=== PATIENT | female | born 1985 | race Caucasian/White ===

== ENCOUNTER 2016-12-20 18:30 | Emergency (ER) | payer OTHER ==
[~2016-12-20] VITALS: Ht 149.9 cm; Wt 52.0 kg
[2016-12-20 19:09] VITALS: BP 99/61
[2016-12-20 19:26] LABS: HIV 1&2 ANTIBODY SCREEN Nonreactive (Nonreactive); HIV-1 p24 ANTIGEN Nonreactive (Nonreactive)
[2016-12-22 10:03] LABS: HEPATITIS C VIRUS ANTIBODY Nonreactive (Nonreactive)
== END 2016-12-20 19:33 | disposition home or self-care (01) ==
LOC: ED 19:18
DX: S61.032A Puncture wound without foreign body of left thumb without damage to nail, initial encounter (principal); Z20.89 Contact with and (suspected) exposure to other communicable diseases
CPT/HCPCS: 36415; 80076; 86703; 86705; 86706; 86803; 87340; 87899; 99284; G0435

== ENCOUNTER → 2019-05-01 | Outpatient (CLI) | payer BC, OTHER ==
[~2019-05-01] MED LIST: NO MEDS
[2019-05-01 15:38] LABS: BASOPHILS # (AUTO) 0.02 x10^3/uL (0-0.1); BASOPHILS % (AUTO) 0 % (0-1); EOSINOPHILS # (AUTO) 0.16 x10^3/uL (0-0.4); EOSINOPHILS % (AUTO) 2 % (1-7); LYMPHOCYTES % (AUTO) 37 % (22-44); MD NO; MEAN CORPUSCULAR HEMOGLOBIN 28.8 pg (27.0-34.8); MEAN CORPUSCULAR HGB CONC 32.4 g/dL (32.4-35.8); MEAN CORPUSCULAR VOLUME 88.7 fL (80-100); MEAN PLATELET VOLUME 7.9 fL (7.4-10.4); MONOCYTES # (AUTO) 0.39 x10^3/uL (0.2-0.8); MONOCYTES % (AUTO) 6 % (2-9); NEUTROPHILS % (AUTO) 55 % (42-75); PLATELET COUNT 294 x10^3/uL (130-400); RED BLOOD COUNT 4.96 x10^6/uL (3.82-5.3); RED CELL DISTRIBUTION WIDTH 13.9 % (9.6-15.2)
== END | disposition home or self-care (01) ==
LOC: STAR 14:45
PROVIDERS: ATTEND Obstetrics & Gynecology
DX: Z01.818 Encounter for other preprocedural examination (principal)
CPT/HCPCS: 36415; 84703; 85025

== ENCOUNTER 2019-05-08 10:05 | Day surgery (SDC) | payer BC, OTHER ==
[~2019-05-08] VITALS: Ht 149.9 cm; Wt 51.5 kg
[2019-05-08] MEDS ORDERED: LACTATED RINGERS 1,000 ML IV ONE (10:22)
[2019-05-08] MEDS ORDERED: BUPIVACAINE 0.25% ONE (10:28)
[2019-05-08] MEDS ORDERED: SILVER NITRATE STICK TP ONE (10:28)
[2019-05-08 10:29] VITALS: BP 94/61
[2019-05-08 10:48] LABS: HCG UR SG 1.023 (1.003-1.030)
[2019-05-08] MEDS ORDERED: FENTANYL PF 250 MCG/5ML ONE (11:46)
[2019-05-08] MEDS ORDERED: PROPOFOL 50 ML ONE (11:46)
[2019-05-08] MEDS ORDERED: MIDAZOLAM 1 MG/ML, 2ML ONE (11:46)
[2019-05-08] MEDS ORDERED: DIPHENHYDRAMINE 50 MG/ML, 1ML IVPush PRN (12:30)
[2019-05-08] MEDS ORDERED: FENTANYL PF 100 MCG/2ML IV PRN (12:30)
[2019-05-08] MEDS ORDERED: EPHEDRINE 50 MG/ML, 1ML IVPush PRN (12:30)
[2019-05-08] MEDS ORDERED: ONDANSETRON 2MG/ML, 2ML IV PRN (12:30)
[2019-05-08] MEDS ORDERED: ONDANSETRON ODT 8 MG PO PRN (12:30)
[2019-05-08] MEDS ORDERED: PROMETHAZINE 25 MG/ML, 1ML IV PRN (12:30)
[2019-05-08] MEDS ORDERED: EPHEDRINE 50 MG/ML, 1ML IM PRN (12:30)
[2019-05-08] MEDS ORDERED: ACETAMINOPHEN 325 MG TABLET PO PRN (12:30)
[2019-05-08] MEDS ORDERED: MIDAZOLAM 1 MG/ML, 2ML IV PRN (12:30)
[2019-05-08] MEDS ORDERED: MEPERIDINE/PF 25MG/ML,1ML IVPush PRN (12:30)
[2019-05-08] MEDS ORDERED: OXYcodone 5 MG/5 ML ORAL.SOL UDC PO PRN (12:30)
[2019-05-08] MEDS ORDERED: HYDROmorphone 2 MG/ML, 1ML IVPush PRN (12:30)
[2019-05-08] MEDS ORDERED: ONDANSETRON 2MG/ML, 2ML ONE (12:39)
[2019-05-08] MEDS ORDERED: KETOROLAC 30 MG/1 ML ONE (12:39)
[2019-05-08] MEDS ORDERED: DEXAMETHASONE 4 MG/ML, 1ML ONE (12:39)
[2019-05-08] MEDS ORDERED: HYDROcodone/APAP 5/325 TABLET PO PRN (14:00)
[2019-05-08] MEDS ORDERED: ONDANSETRON 2MG/ML, 2ML IVPush PRN (14:00)
[2019-05-08] MEDS ORDERED: morphine SULFATE 10 MG/ML, 1ML IVPush PRN (14:00)
[2019-05-08] MEDS ORDERED: PROMETHAZINE 12.5 MG SUPP PR ONE (14:00)
[2019-05-08] MEDS ORDERED: IBUPROFEN 600 MG TABLET PO SCH (18:00)
== END 2019-05-08 15:10 | disposition home or self-care (01) ==
LOC: OUT 10:05
PROVIDERS: ATTEND Obstetrics & Gynecology
DX: N93.9 Abnormal uterine and vaginal bleeding, unspecified (principal); Z79.3 Long term (current) use of hormonal contraceptives; Z98.890 Other specified postprocedural states
CPT/HCPCS: 58563; 81025; J1100; J1885; J2250; J2405; J2704; J3010; J3490; J7120